=== PATIENT | male | born 1950 | race Caucasian/White ===

== ENCOUNTER 2018-09-20 10:25 | Emergency (ER) | payer BC, SELFPAY ==
[2018-09-20 10:26] VITALS: BP 195/101; PULSE 89; RESP 16; TEMP 36.6; O2SAT 97; BMI 34.2
[2018-09-20 11:02] LABS: Absolute Lymphocyte Count 1.45 X10^3/ul (0.83-4.51); Absolute Neutrophil Count 1.6 X10^3/uL (2.0-7.7); Basophil# 0.03 X10^3/uL; Basophil% 0.8 % (0-1); Eosinophil# 0.09 X10^3/uL; Eosinophils% 2.5 % (0-5); Hematocrit 50.3 % (40-54); Hemoglobin 16.7 g/dl (13.0-16.5); Lymphocyte # 1.45 X10^3/ul (4.0); Lymphocyte % 39.7 % (19-41); Mean Corp Hgb Conc 33.2 g/gl (32-36); Mean Corpuscular Hgb 29.4 pg (27.0-32.0); Mean Corpuscular Volume 88.6 fL (80-94); Mean Platelet Vol. 11.3 fl (6.2-12.0); Monocyte# 0.46 X10^3/uL; Monocyte% 12.6 % (0-10); Neutrophil # 1.61 X10^3/uL (2.7-7.7); Neutrophil % 44.1 % (47-70); Platelet Count 185 K/mm3 (150-450); RBC Distribution Width CV 15.1 % (11.6-14.6); RBC Distribution Width SD 49.5 fl (35.1-43.9); Red Blood Count 5.68 M/mm3 (4.6-6.2); White Blood Count 3.7 K/mm3 (4.4-11.0)
[2018-09-20 11:05] LABS: POSITIVE COUNT NO; POSITIVE DIFFERENTIAL NO; POSITIVE MORPHOLOGY NO
[2018-09-20 11:07] LABS: Anion Gap 7 (5-15); BUN 13 mg/dL (7-18); BUN/Creat Ratio 8.7 RATIO (10-20); Calcium,Total 8.8 mg/dL (8.5-10.1); Chloride 104 mmol/L (98-107); EST Glomerular Filtration Rate 50 mL/min (>60); Est Glom Filt Rate - Afr Amer 60 mL/min (>60); Glucose 83 mg/dL (74-106); Potassium 4.3 mmol/L (3.5-5.1); Sodium Level 139 mmol/L (136-145)
--- NOTE | 2018-09-20 11:50 | ED.VISSUMM ---
- ER Visit Summary Date of Service: 09/20/18 Chief Complaint: Nosebleed History of Present Illness: The patient is a 67 M presenting for evaluation secondary to a nosebleed. Patient states that he was working out today and he had a sudden onset of bleeding from his right nostril. This was not controlled with pressure. He states that he is never really had a history of this in the past. Patient is hypertensive, states that his blood pressure typically runs in the 120s. He is not on any sort of anticoagulants. He denies any easy bruising or bleeding. Physical Examination: Vital signs notable for blood pressure 195/101. HEENT exam shows active bleeding coming from the right nostril with some bleeding going down patient's posterior pharynx. No evidence of conjunctival pallor. Test Results: CBC shows a normal platelet count. Chemistry shows a creatinine of 1.5 only mildly elevated from patient's creatinine a year or 2 ago. Emergency Department Course and Treatment: Patient presented secondary to epistaxis. Patient's nose was packed with Afrin soaked gauze. I was able to identify a discrete area of bleeding coming from the defect in the patient's anterior right nasal septum with some evidence of pulsatile bleeding. I attempted to do chemical cautery with silver nitrate on this, but was unable to control the bleeding with this. At that point it seemed necessary to do a anterior nasal packing on the patient. A Merocel packing was placed on the patient, he was observed for 1/2-hour did not have any sort of repeat bleeding, and was ambulated in the emergency department and did not have any repeat bleeding. At this point he will be given referral to ear nose and throat for packing removal. All questions were answered and patient was discharged. Disposition: Discharge Impression: 1. Right-sided epistaxis 2. Nasal packing by ED physician This note was generated with [employer] dictation software. It may contain incorrect words, spelling, and punctuation that were not noted in review of the chart prior to signing ED Disposition - Plan for ED Patient: Disposition: Home or Assisted Living Chief Complaint: Nosebleed Diagnosis: Epistaxis Instructions: Nosebleed Prescriptions: Cephalexin [Keflex] 500 mg PO BID #10 cap Referrals: Margarito Anaya MD [STAFF PHYSICIAN] - 3-5 Days Additional Instructions: The antibiotic is to prevent your packing from getting infected. Take it until your packing is removed Your Labwork came back normal. Followup with your primary care doctor for your cramping.
--- NOTE | 2018-09-20 11:55 | ED.DCSUM_ITS ---
- ER Visit Summary Date of Service: 09/20/18 Chief Complaint: Nosebleed History of Present Illness: The patient is a 67 M presenting for evaluation secondary to a nosebleed. Patient states that he was working out today and he had a sudden onset of bleeding from his right nostril. This was not controlled with pressure. He states that he is never really had a history of this in the past. Patient is hypertensive, states that his blood pressure typically runs in the 120s. He is not on any sort of anticoagulants. He denies any easy bruising or bleeding. Physical Examination: Vital signs notable for blood pressure 195/101. HEENT exam shows active bleeding coming from the right nostril with some bleeding going down patient's posterior pharynx. No evidence of conjunctival pallor. Test Results: CBC shows a normal platelet count. Chemistry shows a creatinine of 1.5 only mildly elevated from patient's creatinine a year or 2 ago. Emergency Department Course and Treatment: Patient presented secondary to epista xis. Patient's nose was packed with Afrin soaked gauze. I was able to identify a discrete area of bleeding coming from the defect in the patient's anterior right nasal septum with some evidence of pulsatile bleeding. I attempted to do chemical cautery with silver nitrate on this, but was unable to control the bleeding with this. At that point it seemed necessary to do a anterior nasal packing on the patient. A Merocel packing was placed on the patient, he was observed for 1/2-hour did not have any sort of repeat bleeding, and was ambulated in the emergency department and did not have any repeat bleeding. At this point he will be given referral to ear nose and throat for packing removal. All questions were answered and patient was discharged. Disposition: Discharge Impression: 1. Right-sided epistaxis 2. Nasal packing by ED physician This note was generated with [employer] dictation software. It may contain incorrect words, spelling, and punctuation that were not noted in review of the chart prior to signing ED Disposition - Plan for ED Patient: Disposition: Home or Assisted Living Chief Complaint: Nosebleed Diagnosis: Epistaxis Instructions: Nosebleed Prescriptions: Cephalexin [Keflex] 500 mg PO BID #10 cap Referrals: Margarito Anaya MD [STAFF PHYSICIAN] - 3-5 Days Additional Instructions: The antibiotic is to prevent your packing from getting infected. Take it until your packing is removed Your Labwork came back normal. Followup with your primary care doctor for your cramping.
[2018-09-20 12:17] VITALS: BP 174/103; PULSE 84; RESP 16; O2SAT 99
== END 2018-09-20 12:18 | disposition home or self-care (01) ==
PROVIDERS: Emergency Provider Emergency Medicine
DX: R04.0 Epistaxis (principal)
CPT/HCPCS: 30901; 80048; 85025; 99282; A4216

== ENCOUNTER 2022-05-09 08:40 | Outpatient (CLI) | payer MEDICARE, SELFPAY ==
[2022-05-09 10:12] LABS: Hematocrit 44.5 % (40-54); Hemoglobin 14.8 g/dL (13.0-16.5); Mean Corp Hgb Conc 33.3 g/dL (32-36); Mean Corpuscular Hgb 30.3 pg (27.0-32.0); Mean Platelet Vol. 11.6 fl (6.2-12.0); Platelet Count 172 K/mm3 (150-450); RBC Distribution Width CV 12.6 % (11.6-14.6); RBC Distribution Width SD 42.5 fl (35.1-43.9); Red Blood Count 4.89 M/mm3 (4.6-6.2); White Blood Count 4.5 K/mm3 (4.4-11.0)
[2022-05-09 10:36] LABS: AST(SGOT) 17 U/L (15-37); Alanine Aminotransfer ALT/SGPT 25 U/L (16-61); Albumin, Serum 3.4 g/dL (3.2-5.0); Alkaline Phosphatase 58 U/L (45-117); Anion Gap 5 (5-15); BUN 11 mg/dL (7-18); Calcium,Total 8.8 mg/dL (8.5-10.1); Chloride 108 mmol/L (98-107); Cholesterol 265 mg/dL (200); Creatinine, Serum 0.92 mg/dL (0.70-1.30); EST Glomerular Filtration Rate 87 mL/min (>60); Est Glom Filt Rate - Afr Amer 105 mL/min (>60); Globulin 3.4 g/dL (2.2-4.2); Glucose 100 mg/dL (74-106); High Density Lipoprotein 39 mg/dL; PSA,Total - Annual Screen 2.67 ng/mL (0.00-4.00); Protein, Total 6.8 g/dL (6.4-8.2); Sodium Level 141 mmol/L (136-145); Thyroid Stim Hormone (TSH) 2.46 uIU/mL (0.358-3.74); Triglycerides 265 mg/dL; Very Low Density Lipoprotein 53 mg/dL (5-40)
[2022-05-09 10:38] LABS: Vitamin B12 369 pg/mL (211-911); Vitamin D,25 Hydroxy 75.6 ng/mL
[2022-05-12 14:09] LABS: Testosterone, Free 7.15 ng/dL (5.00-21.00)
[2022-05-13 20:12] LABS: Testosterone, % Free 2.02 % (1.50-4.20); Testosterone, Total 354 ng/dL (264-916)
== END 2022-05-09 23:59 | disposition home or self-care (01) ==
LOC: MFPLAB 08:44
PROVIDERS: PCP Family Medicine; Referring Provider Family Medicine; Visit Provider Family Medicine
DX: Z13.1 Encounter for screening for diabetes mellitus (principal); Z13.220 Encounter for screening for lipoid disorders; Z12.5 Encounter for screening for malignant neoplasm of prostate; R53.83 Other fatigue; R79.89 Other specified abnormal findings of blood chemistry
CPT/HCPCS: 36415; 80048; 80061; 80076; 82306; 82607; 84153; 84402; 84403; 84443; 85027; G0103